=== PATIENT | female | born 1955 | race Caucasian/White ===

== ENCOUNTER 2020-05-14 06:35 | Emergency (ER) | payer SELFPAY ==
[2020-05-14 08:51] LABS: ABSOLUTE LYMPHOCYTES (AUTO) 1.7 10^3/uL (0.5-4.7); ABSOLUTE MONOCYTES (AUTO) 0.4 10^3/uL (0.1-1.4); ABSOLUTE NEUT (AUTO) 8.5 10^3/uL (1.7-8.2); BASOPHILS % (AUTO) 0.3 % (0-2); EOSINOPHILS % (AUTO) 0.1 % (0-6); HEMATOCRIT 42.4 % (36.0-47.0); HEMOGLOBIN 14.3 g/dL (12.0-15.5); LYMPHOCYTES % (AUTO) 15.6 % (13-45); MEAN CORPUSCULAR HEMOGLOBIN 30.2 pg (27.0-33.4); MEAN CORPUSCULAR HGB CONC 33.7 g/dL (32.0-36.0); MEAN CORPUSCULAR VOLUME 90 fl (80-97); MONOCYTES % (AUTO) 4.2 % (3-13); PLATELET COUNT 228 10^3/uL (150-450); RED BLOOD COUNT 4.74 10^6/uL (3.72-5.28); RED CELL DISTRIBUTION WIDTH 13.9 % (11.5-14.0); SEGMENTED NEUTROPHILS % (AUTO) 79.8 % (42-78); TOTAL CELLS COUNTED % (AUTO) 100 %; WHITE BLOOD COUNT 10.7 10^3/uL (4.0-10.5)
[2020-05-14] MEDS ORDERED: NORMAL SALINE 1000 ML 1,000 ML IV ONE (09:10)
[2020-05-14] MEDS ORDERED: MAG HYDROX/AL HYDROX/SIMETH SUSP 30 ML UDCUP PO ONE (09:11)
[2020-05-14] MEDS ORDERED: LIDOCAINE 2% VISCOUS SOLN 15 ML UDCUP PO ONE (09:11)
[2020-05-14] MEDS ORDERED: FAMOTIDINE INJ/PF 20 MG/2 ML SDV IV ONE (09:11)
[2020-05-14 09:15] LABS: ALBUMIN 4.7 g/dL (3.5-5.0); ALKALINE PHOSPHATASE 121 U/L (38-126); ANION GAP 5 (5-19); ASPARTATE AMINO TRANSFERASE 23 U/L (14-36); BILIRUBIN,TOTAL 0.4 mg/dL (0.2-1.3); BLOOD UREA NITROGEN 13 mg/dL (7-20); CALCIUM 9.8 mg/dL (8.4-10.2); CARBON DIOXIDE 28 mmol/L (22-30); CHLORIDE 106 mmol/L (98-107); GLUCOSE 119 mg/dL (75-110); POTASSIUM 4.4 mmol/L (3.6-5.0); TOTAL PROTEIN 7.5 g/dL (6.3-8.2)
[2020-05-14 09:20] LABS: APPEARANCE,URINE SLIGHTLY-CLOUDY; BILIRUBIN,URINE NEGATIVE (NEGATIVE); COLOR,URINE YELLOW; GLUCOSE, URINE NEGATIVE (NEGATIVE); KETONES,URINE 20 mg/dL (NEGATIVE); LEUKOCYTE ESTERASE,URINE SMALL (NEGATIVE); NITRITE,URINE NEGATIVE (NEGATIVE); PROTEIN,URINE 30 mg/dL (NEGATIVE); URINE SPECIFIC GRAVITY 1.021; UROBILINOGEN,URINE NEGATIVE mg/dL (<2.0)
--- NOTE | 2020-05-14 09:28 | ER Document Report ---
Entered by MAKAYLA ALVARADO SCRIBE 05/14/20 0922 Acting as scribe for:BUZZ MURILLO MD ED GI/ - General Chief Complaint: vomitng Stated Complaint: NAUSEA,VOMITING Time Seen by Provider: 05/14/20 08:54 Mode of Arrival: Ambulatory Information source: Patient Notes: This 65-year-old female patient presents to the emergency department today with complaints of "indigestion for a week" with complaints of vomiting as well. Patient states last night she vomited about a dozen times in a few hours prior to arrival here. Patient describes her pain as a burning from her esophagus down to her lower abdomen. - Related Data Allergies/Adverse Reactions: Penicillins Allergy (Verified 05/14/20 08:04) Past Medical History - General Information source: Patient - Social History Smoking Status: Current Every Day Smoker Cigarette use (# per day): Yes - 1/2 ppd Frequency of alcohol use: None Drug Abuse: None Lives with: Family Family History: Reviewed & Not Pertinent Patient has homicidal ideation: No GI Medical History: Reports: Hx Gastroesophageal Reflux Disease Past Surgical History: Reports: Hx Orthopedic Surgery - right elbow ulnar nerve release, Hx Tonsillectomy, Other - Bunionectomy Review of Systems - Review of Systems Constitutional: No symptoms reported EENT: No symptoms reported Cardiovascular: No symptoms reported Respiratory: No symptoms reported Gastrointestinal: See HPI, Vomiting, Other - indigestion Genitourinary: No symptoms reported Female Genitourinary: No symptoms reported Musculoskeletal: No symptoms reported Skin: No symptoms reported Hematologic/Lymphatic: No symptoms reported Neurological/Psychological: No symptoms reported -: Yes All other systems reviewed and negative Physical Exam - Vital signs Vitals: Temp 98.0 F 05/14/20 08:01 - Notes Notes: Physical Exam: General: Alert, appears well. HEENT: Normocephalic. Atraumatic. PERRL. Extraocular movements intact. Oropharynx clear. Neck: Supple. Non-tender. Respiratory: No respiratory distress. Clear and equal breath sounds bilaterally. Cardiovascular: Regular rate and rhythm. Abdominal: Obese. Epigastric tenderness with palpation. No distension. Normal Bowel Sounds. Back: No gross abnormalities. Extremities: Moves all four extremities. Upper extremities: Normal inspection. Normal ROM. Lower extremities: Normal inspection. No edema. Normal ROM. Neurological: Normal cognition. AAOx4. Normal speech. Psychological: Normal affect. Normal Mood. Skin: Warm. Dry. Normal color. Course - Re-evaluation Re-evalutation: 05/14/20 11:13 The patient's gallbladder shows stones with a mildly thickened wall at 4 mm, and a common bile duct at the upper limits of normal at 7 mm. There is no pericholecystic fluid seen. There is no leukocytosis, LFTs and lipase are normal. The patient will be advised to contact [facility] and schedule an appointment this week for further evaluation of her gallbladder. - Vital Signs Vital signs: Temp Pulse Resp BP Pulse Ox 98.0 F 72 16 131/80 H 99 05/14/20 08:04 05/14/20 08:04 05/14/20 08:04 05/14/20 08:04 05/14/20 08:04 - Laboratory Result Diagrams: 05/14/20 08:25 05/14/20 08:25 Laboratory results interpreted by me: 05/14/20 05/14/20 05/14/20 08:25 08:25 08:45 WBC 10.7 H Absolute Neuts (auto) 8.5 H Seg Neutrophils % 79.8 H Glucose 119 H Urine Protein 30 H Urine Ketones 20 H Urine Blood SMALL H Ur Leukocyte Esterase SMALL H - Diagnostic Test Radiology reviewed: Image reviewed, Reports reviewed - Gallbladder ultrasound shows stones in the gallbladder, common bile duct upper limits of normal at 7 mm, gallbladder wall slightly thickened at 4 mm. No pericholecystic fluid. Discharge - Discharge Clinical Impression: GERD (gastroesophageal reflux disease) Qualifiers: Esophagitis presence: esophagitis presence not specified Qualified Code(s): K21.9 - Gastro-esophageal reflux disease without esophagitis Cholelithiasis Qualifiers: Cholelithiasis location: gallbladder Cholecystitis presence: without cholecystitis Biliary obstruction: without biliary obstruction Qualified Code(s): K80.20 - Calculus of gallbladder without cholecystitis without obstruction Condition: Stable Disposition: HOME, SELF-CARE Additional Instructions: Gallbladder Disease: Your evaluation shows evidence of gallbladder disease. The gallbladder is a pouch under the liver which stores bile. Stones, infection, or irritation of the gallbladder cause attacks of pain. Certain foods -- fats in particular -- may provoke attacks. The usual treatment for gallbladder disease is surgical removal of the gallbladder -- called a cholecystectomy. You will be referred to a physician qualified to advise you on the best treatment for your problem. Hospitalization is not necessary. Take clear liquids only until you are painfree. After that, you should stay on a low-fat diet, with frequent SMALL meals. Call the doctor or return at once if you develop severe pain, repeated vomiting, fever, or jaundice (a yellow color in the skin and whites of the eyes). Reflux Disease (GERD): Gastro-Esophageal Reflux Disease (GERD) is caused by stomach acid refluxing back up into the esophagus. The valve at the end of the esophagus may be weak. This is common in persons with a hiatal hernia. GERD symptoms can include indigestion, chest pain, heartburn, or food "sticking." Certain foods, alcohol, and aspirin can make GERD worse. Treatment depends on the severity. Usually, antacids or acid-suppressing medicines are used. When the esophagus is acutely inflamed, the physician will often prescribe membrane-protective drugs such as Carafate. Some patients benefit from medication such as Reglan that tightens the valve at the top of the stomach. Avoid those foods that bring on your symptoms. For many people, these foods are coffee, chocolate, onions, garlic, and carbonated drinks. Don't use alcohol, aspirin, caffeine, or tobacco. Don't eat late at night -- within 4 hours of bedtime. Don't over-eat. If necessary, elevate the head of your bed about 4 inches so that stomach acid will not roll up into your esophagus. Call the doctor if you develop severe chest pain, inability to swallow fluids, fever, or worsening symptoms. The symptoms you are having are consistent with gastroesophageal reflux. The symptoms are probably being made worse by gallstones. At this time do not appear to have acute cholecystitis, however your gallbladder wall is a little bit thickened. You should take a proton pump inhibitor medication such as Prilosec OTC once daily. Eat a bland low-fat diet. Take medication as dispensed for nausea if needed today. Call [facility] today to schedule an appointment this week to be evaluated for your gallbladder disease. RETURN TO THE EMERGENCY ROOM IF ANY NEW OR WORSENING SYMPTOMS. I personally performed the services described in the documentation, reviewed and edited the documentation which was dictated to the scribe in my presence, and it accurately records my words and actions.
--- NOTE | 2020-05-14 10:37 | RADIOLOGY REPORT (SQ) ---
EXAM DESCRIPTION: U/S ABDOMEN LIMITED W/O DOP IMAGES COMPLETED DATE/TIME: 05/14/2020 10:22 am REASON FOR STUDY: Reflux, vomiting COMPARISON: None. TECHNIQUE: Dynamic and static grayscale images acquired of the abdomen and recorded on PACS. Additio nal selected color Doppler and spectral images recorded. LIMITATIONS: None. FINDINGS: PANCREAS: Limited visualization due to overlying bowel gas. LIVER: Fatty infiltration. No focal masses. LIVER VASCULATURE: Normal directional flow of the main portal vein and hepatic veins. GALLBLADDER: Gallstones. Gallbladder wall is slightly thickened measured 4 mm. No pericholecystic e meg. ULTRASOUND-DETECTED REYNA'S SIGN: Negative. INTRAHEPATIC DUCTS AND COMMON DUCT: The common bile duct is at the upper limits of normal measured at 7.0 mm. AORTA: No aneurysm. RIGHT KIDNEY: Normal size. Normal echogenicity. No solid or suspicious masses. No hydronephrosis. No calcifications. PERITONEAL AND RIGHT PLEURAL SPACE: No ascites or effusions. OTHER: No other significant findings. IMPRESSION: Fatty infiltrated liver. Gallstones. Gallbladder wall is slightly thickened measured 4 mm. No pericholecystic edema. Negative sonographic Reyna's sign. The common bile duct is at the upper limits of normal in size. TECHNICAL DOCUMENTATION: JOB ID: [id number] 2010 [employer]- All Rights Reserved Reading location - IP/workstation name: [email or web address]
[2020-05-14] MEDS ORDERED: ONDANSETRON ODT 4 MG TAB (6 TAB/ER DISP) PO PRN (11:14)
[2020-05-14 11:35] VITALS: BP 139/68
== END 2020-05-14 11:35 | disposition home or self-care (01) ==
LOC: ER 06:35
DX: K21.9 Gastro-esophageal reflux disease without esophagitis (principal); K80.20 Calculus of gallbladder without cholecystitis without obstruction; R11.2 Nausea with vomiting, unspecified; K76.0 Fatty (change of) liver, not elsewhere classified; F17.210 Nicotine dependence, cigarettes, uncomplicated; Z88.0 Allergy status to penicillin
CPT/HCPCS: 99284; 96361; 96374; 36415; 83690; 85025; 80053; 81001; 76705; J3490; J7030; S0028

== ENCOUNTER 2020-10-25 08:23 | Observation (INO) | payer SELFPAY ==
[2020-10-25] MEDS ORDERED: ONDANSETRON HCL INJ/PF 4 MG/2 ML SDV IV ONE (08:38)
[2020-10-25] MEDS ORDERED: NORMAL SALINE 1000 ML 1,000 ML IV ONE (08:38)
[2020-10-25 08:55] LABS: ABSOLUTE BASOPHILS # (AUTO) 0.1 10^3/uL (0.0-0.2); ABSOLUTE LYMPHOCYTES (AUTO) 1.8 10^3/uL (0.5-4.7); ABSOLUTE MONOCYTES (AUTO) 0.4 10^3/uL (0.1-1.4); ABSOLUTE NEUT (AUTO) 11.5 10^3/uL (1.7-8.2); BASOPHILS % (AUTO) 0.4 % (0-2); EOSINOPHILS % (AUTO) 0.1 % (0-6); HEMOGLOBIN 14.1 g/dL (12.0-15.5); LYMPHOCYTES % (AUTO) 13.2 % (13-45); MEAN CORPUSCULAR HEMOGLOBIN 30.1 pg (27.0-33.4); MEAN CORPUSCULAR HGB CONC 33.5 g/dL (32.0-36.0); MEAN CORPUSCULAR VOLUME 90 fl (80-97); PLATELET COUNT 247 10^3/uL (150-450); RED BLOOD COUNT 4.67 10^6/uL (3.72-5.28); RED CELL DISTRIBUTION WIDTH 13.8 % (11.5-14.0); SEGMENTED NEUTROPHILS % (AUTO) 83.3 % (42-78); TOTAL CELLS COUNTED % (AUTO) 100 %; WHITE BLOOD COUNT 13.8 10^3/uL (4.0-10.5)
[2020-10-25] MEDS ORDERED: MORPHINE SULFATE 10 MG/ML INJ IV ONE (09:01)
--- NOTE | 2020-10-25 09:05 | ER Document Report ---
ED GI/ - General Chief Complaint: Nausea/Vomiting Stated Complaint: ABDOMINAL PAIN Time Seen by Provider: 10/25/20 08:47 - HPI Notes: Patient is a 65-year-old female with a history of gallstones who presents with RUQ abdominal pain that began early this morning around 3 AM. Patient reports persistent nausea vomiting. She states this pain is similar to when she had a gallstone attack back in April. She was advised to follow up with the [facility] outpatient, however, she has not followed up. She denies diarrhe a, dysuria, shortness of breath, chest pain, cough, and fever. She has not taken any medication for symptom relief. Patient states the last time she ate was at 18:30 last night. - Related Data Allergies/Adverse Reactions: codeine Allergy (Verified 10/25/20 08:53) Penicillins Allergy (Verified 10/25/20 08:53) rash Past Medical History - General Information source: Patient - Social History Smoking Status: Current Every Day Smoker Chew tobacco use (# tins/day): No Frequency of alcohol use: Occasional Drug Abuse: None Family History: Reviewed & Not Pertinent GI Medical History: Reports: Hx Gastroesophageal Reflux Disease Past Surgical History: Reports: Hx Orthopedic Surgery - right elbow ulnar nerve release, Hx Tonsillectomy, Other - Bunionectomy Review of Systems - Review of Systems Constitutional: No symptoms reported EENT: No symptoms reported Cardiovascular: No symptoms reported Respiratory: No symptoms reported Gastrointestinal: See HPI Genitourinary: No symptoms reported Female Genitourinary: No symptoms reported Musculoskeletal: No symptoms reported Skin: No symptoms reported Hematologic/Lymphatic: No symptoms reported Neurological/Psychological: No symptoms reported Physical Exam - Vital signs Vitals: Temp Pulse Resp BP Pulse Ox 97.9 F 66 20 175/78 H 99 10/25/20 08:25 12 08:25 12 08:25 10/25/20 08:25 10/25/20 08:25 - Notes Notes: PHYSICAL EXAMINATION: VITALS: Vitals reviewed. Hypertensive. GENERAL: Well-appearing, well-nourished and in no acute distress. HEAD: Atraumatic, normocephalic. EYES: Pupils equal, round, and reactive to light, extraocular movements intact, sclera anicteric, conjunctiva are normal. ENT: Nares patent. Moist mucous membranes. Oropharynx clear without exudates. NECK: Normal range of motion, supple without lymphadenopathy. LUNGS: Breath sounds clear to auscultation bilaterally and equal. No wheezes, rales, or rhonchi. HEART: Regular, rate, and rhythm without murmurs. ABDOMEN: Soft abdomen with normoactive bowel sounds. RUQ tenderness with negative Reyna sign. No guarding, no rebound. No masses appreciated. EXTREMITIES: Normal range of motion, no pitting or edema. No cyanosis. NEUROLOGICAL: No focal neurological deficits. Moves all extremities spontaneously and on command. PSYCH: Normal mood, normal affect. SKIN: Warm, Dry, normal turgor, no rashes or lesions noted. Course - Re-evaluation Re-evalutation: Patient is a 65-year-old female with history of gallstones who presents with RUQ abdominal pain and vomiting that began early this morning. Patient is hyperten sive with a BP of 175/78. Vital signs are otherwise within normal limits. On exam, RUQ tenderness with normal bowel sounds. WBC is elevated at 13.8. Alk Phos is elevated at 161. Gallbladder US shows cholelithiasis. While there are no sonographic findings of acute cholecystitis, such a process cannot be ruled out given a positive sonographic Reyna sign. Adenomyomatosis. Common bile duct measuring at the upper limits of normal, unchanged. Hepatic steatosis. 10/25/20 11:10 I spoke with supervising physician, Dr. Bernardo, who evaluated the patient back in April. He recommends calling the surgeon on-call due to her leukocytosis, sonographic reyna's sign and lack of follow up as she is un insured. 10/25/20 11:[address] Feng, surgeon on-call. He agrees to evaluate the patient for likely cholecystectomy. He is requesting the patient be NPO and a rapid COVID testing. - Vital Signs Vital signs: Temp Pulse Resp BP Pulse Ox 97.9 F 70 18 160/77 H 98 10/25/20 14:05 10/25/20 11:57 10/25/20 14:05 10/25/20 14:05 10/25/20 14:05 - Laboratory Results Result Diagrams: 10/25/20 08:42 10/25/20 08:42 Laboratory Results Interpreted: 10/25/20 10/25/20 10/25/20 08:42 08:42 09:39 WBC 13.8 H Absolute Neuts (auto) 11.5 H Seg Neutrophils % 83.3 H Glucose 147 H Alkaline Phosphatase 161 H Urine Ketones TRACE H Urine Blood SMALL H Critical Laboratory Results Reviewed: No Critical Results - Radiology Results Radiology Results Interpreted: Abdomen Ultrasound 10/25/20 09:02 IMPRESSION: Cholelithiasis. While there are no sonographic findings of acute cholecystitis, such a process cannot be ruled out given a positive sonographic Reyna sign. Adenomyomatosis. Common bile duct measuring at the upper limits of normal, unchanged. Hepatic steatosis. Critical Radiology Results Reviewed: No Critical Results Discharge - Discharge Clinical Impression: Cholelithiasis Qualifiers: Cholelithiasis location: gallbladder Cholecystitis presence: without cholecystitis Biliary obstruction: without biliary obstruction Qualified Code(s): K80.20 - Calculus of gallbladder without cholecystitis without obstruction Abdominal pain Qualifiers: Abdominal location: right upper quadrant Qualified Code(s): R10.11 - Right upper quadrant pain Nausea & vomiting Qualifiers: Vomiting type: unspecified Vomiting Intractability: non-intractable Qualified Code(s): R11.2 - Nausea with vomiting, unspecified Leukocytosis Qualifiers: Leukocytosis type: unspecified Qualified Code(s): D72.829 - Elevated white blood cell count, unspecified Condition: Stable Disposition: ADMITTED INPATIENT Admitting Provider: Surgicalist Unit Admitted: OR
[2020-10-25 09:18] LABS: ALBUMIN 4.8 g/dL (3.5-5.0); ALKALINE PHOSPHATASE 161 U/L (38-126); ANION GAP 10 (5-19); ASPARTATE AMINO TRANSFERASE 23 U/L (14-36); BILIRUBIN,DIRECT 0.1 mg/dL (0.0-0.4); BILIRUBIN,TOTAL 0.4 mg/dL (0.2-1.3); BLOOD UREA NITROGEN 12 mg/dL (7-20); CALCIUM 9.8 mg/dL (8.4-10.2); CARBON DIOXIDE 26 mmol/L (22-30); CHLORIDE 105 mmol/L (98-107); GLUCOSE 147 mg/dL (75-110); POTASSIUM 3.9 mmol/L (3.6-5.0)
[2020-10-25 09:55] LABS: APPEARANCE,URINE CLEAR; BILIRUBIN,URINE NEGATIVE (NEGATIVE); COLOR,URINE STRAW; GLUCOSE, URINE NEGATIVE (NEGATIVE); KETONES,URINE TRACE mg/dL (NEGATIVE); LEUKOCYTE ESTERASE,URINE NEGATIVE (NEGATIVE); NITRITE,URINE NEGATIVE (NEGATIVE); PROTEIN,URINE NEGATIVE (NEGATIVE); URINE SPECIFIC GRAVITY 1.015; UROBILINOGEN,URINE NEGATIVE mg/dL (<2.0)
--- NOTE | 2020-10-25 09:59 | RADIOLOGY REPORT (SQ) ---
EXAM DESCRIPTION: U/S ABDOMEN LIMITED W/O DOP IMAGES COMPLETED DATE/TIME: 10/25/2020 9:42 am REASON FOR STUDY: RUQ pain COMPARISON: Right upper quadrant ultrasound 05/14/2020. TECHNIQUE: Dynamic and static grayscale images acquired of the abdomen and recorded on PACS. Leatha puckett selected color Doppler and spectral images recorded. LIMITATIONS: None. FINDINGS: PANCREAS: No masses. Visualized pancreatic duct normal caliber. LIVER: Diffuse increased echogenicity and coarsened echotexture. LIVER VASCULATURE: Normal directional flow of the main portal vein and hepatic veins. GALLBLADDER: Gallstones. No mural thickening or pericholecystic fluid. Echogenic wall with ring tori n artifact consistent with adenomyomatosis. Positive sonographic Reyna's. ULTRASOUND-DETECTED REYNA'S SIGN: Negative. INTRAHEPATIC DUCTS AND COMMON DUCT: Common bile duct measuring at the upper limits of normal at 7 mm, unchanged. INFERIOR VENA CAVA: Normal flow. AORTA: No aneurysm. RIGHT KIDNEY: Normal size. Normal echogenicity. No solid or suspicious masses. No hydronephrosis. No calcifications. PERITONEAL AND RIGHT PLEURAL SPACE: No ascites or effusions. OTHER: No other significant findings. IMPRESSION: Cholelithiasis. While there are no sonographic findings of acute cholecystitis, such a process cannot be ruled out given a positive sonographic Reyna sign. Adenomyomatosis. Common bile duct measuring at the upper limits of normal, unchanged. Hepatic steatosis. TECHNICAL DOCUMENTATION: JOB ID: [id number] 2010 [employer]- All Rights Reserved Reading location - IP/workstation name: [email or web address]
[2020-10-25] MEDS ORDERED: DEXAMETHASONE SOD PHOSPHATE INJ 4 MG/1 ML VIAL ONE (10:55)
[2020-10-25] MEDS ORDERED: ROCURONIUM BROMIDE INJ 50 MG/5 ML VIAL IV ONE (10:55)
[2020-10-25] MEDS ORDERED: KETOROLAC TROMETHAMINE 60 MG/2 ML SDV ONE (10:55)
[2020-10-25] MEDS ORDERED: LIDOCAINE 2% INJ-PF (20 MG/ML) 2 ML AMPUL ONE (10:55)
[2020-10-25] MEDS ORDERED: METOCLOPRAMIDE HCL INJ/PF 10 MG/2 ML SDV ONE (10:55)
[2020-10-25] MEDS ORDERED: NEOSTIGMINE METHYLSULFATE 10 MG/10 ML VIAL ONE (10:55)
[2020-10-25] MEDS ORDERED: ONDANSETRON HCL INJ/PF 4 MG/2 ML SDV ONE ×2 (10:55→14:15)
[2020-10-25] MEDS ORDERED: GLYCOPYRROLATE 1 MG/5 ML VIAL ONE (10:55)
[2020-10-25] MEDS ORDERED: SCOPOLAMINE HYDROBROMIDE 1.5 MG PATCH.TD72 ONE (14:15)
--- NOTE | 2020-10-25 14:33 | PDOC H&P ---
History of Present Illness Admission Date/PCP: 10/25/20 11:45 Patient complains of: Abdominal pains History of Present Illness: MARTHA IRIZARRY is a 65 year old female who complained of severe right upper quadrant pains at 3 AM this morning which is been progressive associated nausea and went to ED today and ultrasound showed gallstones with evidence of chol ecystitis. She had a previous episode in April 2020 which spontaneously resolved. Past Medical History GI Medical History: Reports: Gastroesophageal Reflux Disease Past Surgical History Past Surgical History: Reports: Orthopedic Surgery - right elbow ulnar nerve release, Tonsillectomy, Other - Bunionectomy Social History Smoking Status: Current Every Day Smoker Electronic Cigarette use?: No Family History Family History: Reviewed & Not Pertinent Parental Family History Reviewed: Yes Children Family History Reviewed: No Sibling(s) Family History Reviewed.: No Medication/Allergy Home Medications: No Home Medications 10/25/20 Allergies/Adverse Reactions: codeine Allergy (Verified 10/25/20 08:53) Penicillins Allergy (Verified 10/25/20 08:53) rash Review of Systems Constitutional: PRESENT: other - Denies fever no chills Gastrointestinal: PRESENT: abdominal pain, nausea Physical Exam Vital Signs: Temp Pulse Resp BP Pulse Ox 97.9 F 70 18 160/77 H 98 10/25/20 11:57 10/25/20 11:57 10/25/20 11:57 10/25/20 11:57 10/25/20 11:57 Intake & Output 10/24/20 10/25/20 10/26/20 06:59 06:59 06:59 Intake Total 1000 Balance 1000 Weight 78.7 kg General appearance: PRESENT: mild distress Head exam: PRESENT: atraumatic Eye exam: PRESENT: conjunctiva pink Mouth exam: PRESENT: moist Neck exam: PRESENT: full ROM Respiratory exam: PRESENT: clear to auscultation nova Cardiovascular exam: PRESENT: RRR Pulses: PRESENT: normal radial pulses Vascular exam: PRESENT: normal capillary refill GI/Abdominal exam: PRESENT: tenderness - Right upper quadrant Rectal exam: PRESENT: deferred Results Laboratory Results: 10/25/20 08:42 10/25/20 08:42 10/25/20 10/25/20 10/25/20 08:42 08:42 08:42 WBC 13.8 H RBC 4.67 Hgb 14.1 Hct 42.0 MCV 90 MCH 30.1 MCHC 33.5 RDW 13.8 Plt Count 247 Seg Neutrophils % 83.3 H Sodium 140.6 Potassium 3.9 Chloride 105 Carbon Dioxide 26 Anion Gap 10 BUN 12 Creatinine 0.66 Est GFR ( Amer) > 60 Glucose 147 H Calcium 9.8 Total Bilirubin 0.4 AST 23 Alkaline Phosphatase 161 H Total Protein 8.0 Albumin 4.8 Lipase 60.1 Urine Color Urine Appearance Urine pH Ur Specific [place] Urine Protein Urine Glucose (UA) Urine Ketones Urine Blood Urine Nitrite Ur Leukocyte Esterase Urine WBC (Auto) Urine RBC (Auto) 10/25/20 09:39 WBC RBC Hgb Hct MCV MCH MCHC RDW Plt Count Seg Neutrophils % Sodium Potassium Chloride Carbon Dioxide Anion Gap BUN Creatinine Est GFR ( Amer) Glucose Calcium Total Bilirubin AST Alkaline Phosphatase Total Protein Albumin Lipase Urine Color STRAW Urine Appearance CLEAR Urine pH 7.0 Ur Specific [place] 1.015 Urine Protein NEGATIVE Urine Glucose (UA) NEGATIVE Urine Ketones TRACE H Urine Blood SMALL H Urine Nitrite NEGATIVE Ur Leukocyte Esterase NEGATIVE Urine WBC (Auto) 0 Urine RBC (Auto) 2 Impressions: Abdomen Ultrasound 10/25/20 09:02 IMPRESSION: Cholelithiasis. While there are no sonographic findings of acute cholecystitis, such a process cannot be ruled out given a positive sonographic Reyna sign. Adenomyomatosis. Common bile duct measuring at the upper limits of normal, unchanged. Hepatic steatosis. Assessment & Plan - Diagnosis (1) Acute cholecystitis Is this a current diagnosis for this admission?: Yes (2) Cholelithiasis Qualifiers: Cholelithiasis location: gallbladder Cholecystitis presence: without cholecystitis Biliary obstruction: without biliary obstruction Qualified Code(s): K80.20 - Calculus of gallbladder without cholecystitis without obstruction Is this a current diagnosis for this admission?: Yes (3) Leukocytosis Qualifiers: Leukocytosis type: unspecified Qualified Code(s): D72.829 - Elevated white blood cell count, unspecified Is this a current diagnosis for this admission?: Yes (4) Nausea & vomiting Qualifiers: Vomiting type: unspecified Vomiting Intractability: non-intractable Q ualified Code(s): R11.2 - Nausea with vomiting, unspecified Is this a current diagnosis for this admission?: Yes - Time Time Spent: 30 to 50 Minutes Anticipated Discharge Disposition: Home, Self Care Anticipated Discharge Timeframe: within 48 hours - Inpatient Certification Medical Necessity: Need for IV Antibiotics, Need for Surgery - Plan Summary Plan Summary: 65-year-old female with a right upper quadrant pains around 3 AM this morning associated with nausea and vomiting. Ultrasound showed gallstones with evidence of cholecystitis. She had a previous episode around 6 months ago which spontaneously subsided. Denies any fever no chills. She is tender in the right upper quadrant. Plans: Start IV antibiotics For lap natanael
[2020-10-25] MEDS ORDERED: MIDAZOLAM 2 MG/2 ML INJ ONE (14:44)
[2020-10-25] MEDS ORDERED: BUPIVACAINE HCL 0.25% /EPINEPHRINE INJ/PF 30 ML SDV ONE (14:44)
[2020-10-25] MEDS ORDERED: HYDROMORPHONE HCL INJ/PF 2 MG/ML AMPULE ONE (14:44)
[2020-10-25] MEDS ORDERED: PROPOFOL INJ 200 MG/20 ML VIAL IV ONE (14:45)
[2020-10-25] MEDS ORDERED: CEFAZOLIN INJ 1 GM VIAL ONE (14:54)
[2020-10-25] MEDS ORDERED: EPHEDRINE SULFATE INJ 50 MG/1 ML AMPULE ONE (15:28)
[2020-10-25] MEDS ORDERED: ONDANSETRON HCL INJ/PF 4 MG/2 ML SDV IV PRN (15:34)
[2020-10-25] MEDS ORDERED: FENTANYL CITRATE INJ/PF 100 MCG/2 ML AMPUL IV PRN ×3 (15:34)
[2020-10-25] MEDS ORDERED: DIPHENHYDRAMINE HCL 50 MG/ML VIAL IV PRN (15:34)
[2020-10-25] MEDS ORDERED: MEPERIDINE HCL/PF INJ 25 MG/1 ML DISP.SYRIN IV PRN (15:34)
[2020-10-25] MEDS ORDERED: PROMETHAZINE HCL INJ 25 MG/1 ML VIAL IV PRN ×2 (15:34)
--- NOTE | 2020-10-25 16:24 | Operative Report ---
Operative Report DATE OF SURGERY: 10/25/20 PREOPERATIVE DIAGNOSIS: Cholelithiasis. Acute cholecystitis POSTOPERATIVE DIAGNOSIS: Acute cholecystitis with hydrops of the gallbladder. Cholelithiasis OPERATION: Laparoscopic cholecystectomy SURGEON: ADRIAN IRCK ANESTHESIA: GA TISSUE REMOVED OR ALTERED: Gallbladder COMPLICATIONS: None ESTIMATED BLOOD LOSS: 10 cc QUANTITATIVE BLOOD LOSS: 10 INTRAOPERATIVE FINDINGS: Gallbladder was markedly distended. There appears to be a stone close to the cystic duct. There is mild edema around the gallbladder. PROCEDURE: After adequate general anesthesia patient was placed in supine position and the abdomen prepped and draped in the usual sterile fashion appropriate timeout was then called. Infraumbilical incision was made and the fascia identified and grabbed with Day clamps and divided between the Day clamps. 2 sutures of 0 Vicryl were placed around the clamp on the fascia stay sutures. Clamps were released. The fascial opening was then digitally probed down to the peritoneal area and evidence of adhesions noted there. A Irby trocar was then inserted through the fascia of the abdominal cavity and CO2 insufflated. Patient was placed in reverse in Trendelenburg position and 12 mm trocar inserted subxiphoid towards the right side. 2 other trochars were placed on the right upper quadrant 2 5mm. The gallbladder was then identified and noted to be markedly distended though appears to be relatively small. It was then decompressed with the long needle and aspirated whitish fluid indicating hydrops of the gallbladder. Gallbladder was then able to be grasped at the fundus and brought over the liver. Infundibulum also was subsequently grasped. Blunt dissection around the area of the cystic duct and the cystic duct and cystic artery were then dissected and after angle of safety noted the cystic artery was subsequently clipped with hemoclips and divided between the hemoclips. Cystic duct was then clipped with hemoclips placed 3 clips proximally and 1 clip towards the gallbladder and di vided between the distal clips. The gallbladder was then dissected taken off the liver bed with the use of harmonic donny. Gallbladder placed in Endobag and pulled out through the umbilical port. Was at least 1 large stone palpated in the gallbladder likely obstructing the cystic duct causing the hydrops. Cars were placed back in the liver bed inspected and no evidence of active bleeding noted this was gently irrigated. All the trochars were then removed and CO2 allowed to come out of the trocar sites. The fascial defect in the infraumbilical area was then closed with a [id number] suture using 0 Vicryl and the 2 stay sutures tied together for better closure. The subcu was then irrigated and the skin incision at the infra umbilical area was then closed with running subcuticular 4-0 Vicryl undyed. 3 other skin incisions were then closed with running 4-0 Vicryl undyed. Steri-Strips placed over the operative sites. Needle instrument sponge count were all correct. Patient then brought to recovery room in satisfactory condition extubated.
[2020-10-25] MEDS ORDERED: DEXTROSE 5%-LACTATED RINGERS 1,000 ML IV PRN (16:25)
[2020-10-25] MEDS ORDERED: OXYCODONE-ACETAMINOPHEN 5-325 MG TABLET PO PRN (16:29)
[2020-10-25] MEDS ORDERED: ACETAMINOPHEN 1,000 MG/100 ML RTUPB IV ONE (16:41)
[2020-10-25] MEDS: KETOROLAC TROMETHAMINE INJ/PF 30 MG/1 ML SDV IV SCH (18:23)
[2020-10-25] MEDS: CEFAZOLIN 1 GM/D5W RTU 1 GM/50 ML RTUPB IV SCH (18:23)
[2020-10-26] MEDS: KETOROLAC TROMETHAMINE INJ/PF 30 MG/1 ML SDV IV SCH ×3 (00:50→11:43)
[2020-10-26] MEDS: CEFAZOLIN 1 GM/D5W RTU 1 GM/50 ML RTUPB IV SCH ×3 (00:55→11:44)
[2020-10-26] MEDS ORDERED: INFLUENZA QUAD (6MOS+) 2020-21 VAC 0.5 ML SYR IM ONE (08:00)
[2020-10-26 08:13] LABS: ABSOLUTE LYMPHOCYTES (AUTO) 2.2 10^3/uL (0.5-4.7); ABSOLUTE MONOCYTES (AUTO) 0.7 10^3/uL (0.1-1.4); ABSOLUTE NEUT (AUTO) 7.6 10^3/uL (1.7-8.2); BASOPHILS % (AUTO) 0.4 % (0-2); HEMATOCRIT 31.9 % (36.0-47.0); LYMPHOCYTES % (AUTO) 21.2 % (13-45); MEAN CORPUSCULAR HEMOGLOBIN 30.6 pg (27.0-33.4); MEAN CORPUSCULAR HGB CONC 34.5 g/dL (32.0-36.0); MEAN CORPUSCULAR VOLUME 89 fl (80-97); MONOCYTES % (AUTO) 6.3 % (3-13); PLATELET COUNT 167 10^3/uL (150-450); RED CELL DISTRIBUTION WIDTH 13.8 % (11.5-14.0); SEGMENTED NEUTROPHILS % (AUTO) 72.1 % (42-78); TOTAL CELLS COUNTED % (AUTO) 100 %; WHITE BLOOD COUNT 10.5 10^3/uL (4.0-10.5)
[2020-10-26 08:35] LABS: ALBUMIN 3.4 g/dL (3.5-5.0); ALKALINE PHOSPHATASE 102 U/L (38-126); ANION GAP 7 (5-19); ASPARTATE AMINO TRANSFERASE 27 U/L (14-36); BILIRUBIN,DIRECT 0.1 mg/dL (0.0-0.4); BILIRUBIN,TOTAL 0.3 mg/dL (0.2-1.3); BLOOD UREA NITROGEN 9 mg/dL (7-20); CALCIUM 9.1 mg/dL (8.4-10.2); CARBON DIOXIDE 24 mmol/L (22-30); CHLORIDE 108 mmol/L (98-107); GLUCOSE 108 mg/dL (75-110); TOTAL PROTEIN 5.4 g/dL (6.3-8.2)
--- NOTE | 2020-10-26 10:34 | PDOC DISCHARGE SUMMARY ---
General - Admit/Disc Date/PCP Admission Date/Primary Care Provider: 10/25/20 11:45 Discharge Date: 10/26/20 - Discharge Diagnosis Final Diagnosis: Cholelithiasis Acute cholecystitis - Assessment Summary: 5-year-old female underwent laparoscopic cholecystectomy for acute cholecystitis and cholelithiasis on 10/25/2020. Postoperatively patient did very well and discharged on 10/26/2020. Patient to be followed in the surgical clinic in 2 weeks - Additional Information Resuscitation Status: Full Code Home Medications: No Home Medications 10/25/20 History of Present Illiness History of Present Illness: 65-year-old female with abdominal pains and ultrasound showed gallstones. White count slightly elevated and tender in the right upper quadrant. Patient then admitted for laparoscopic cholecystectomy which was done on 10/25/2020. Hospital Course Hospital Course: Patient admitted on 10/25/2020 for acute cholecystitis and cholelithiasis and underwent laparoscopic cholecystectomy on the same day. Postoperatively patient did very well and discharged on 10/26/2020 to be followed in the surgical clinic in 2 weeks. Physical Exam Vital Signs: Temp Pulse Resp BP Pulse Ox 98.6 F 86 18 134/66 H 97 10/26/20 08:14 10/26/20 07:12 10/26/20 07:12 10/26/20 07:12 10/26/20 07:12 Intake & Output 10/25/20 10/26/20 10/27/20 06:59 06:59 06:59 Intake Total 4020 Output Total 2410 Balance 1610 Weight 79.6 kg Results Laboratory Results: WBC 10.5 10^3/uL (4.0-10.5) 10/26/20 07:54 RBC 3.60 10^6/uL (3.72-5.28) L 10/26/20 07:54 Hgb 11.0 g/dL (12.0-15.5) L D 10/26/20 07:54 Hct 31.9 % (36.0-47.0) L 10/26/20 07:54 MCV 89 fl (80-97) 10/26/20 07:54 MCH 30.6 pg (27.0-33.4) 10/26/20 07:54 MCHC 34.5 g/dL (32.0-36.0) 10/26/20 07:54 RDW 13.8 % (11.5-14.0) 10/26/20 07:54 Plt Count 167 10^3/uL (150-450) 10/26/20 07:54 Lymph % (Auto) 21.2 % (13-45) 10/26/20 07:54 [place] % (Auto) 6.3 % (3-13) 10/26/20 07:54 Eos % (Auto) 0.0 % (0-6) 10/26/20 07:54 Baso % (Auto) 0.4 % (0-2) 10/26/20 07:54 Absolute Neuts (auto) 7.6 10^3/uL (1.7-8.2) 10/26/20 07:54 Absolute Lymphs (auto) 2.2 10^3/uL (0.5-4.7) 10/26/20 07:54 Absolute Monos (auto) 0.7 10^3/uL (0.1-1.4) 10/26/20 07:54 Absolute Eos (auto) 0.0 10^3/uL (0.0-0.6) 10/26/20 07:54 Absolute Basos (auto) 0.0 10^3/uL (0.0-0.2) 10/26/20 07:54 Seg Neutrophils % 72.1 % (42-78) 10/26/20 07:54 Sodium 139.2 mmol/L (137-145) 10/26/20 07:54 Potassium 4.0 mmol/L (3.6-5.0) 10/26/20 07:54 Chloride 108 mmol/L (98-107) H 10/26/20 07:54 Carbon Dioxide 24 mmol/L (22-30) 10/26/20 07:54 Anion Gap 7 (5-19) 10/26/20 07:54 BUN 9 mg/dL (7-20) 10/26/20 07:54 Creatinine 0.75 mg/dL (0.52-1.25) 10/26/20 07:54 Est GFR ( Amer) > 60 (>60) 10/26/20 07:54 Est GFR (MDRD) Non-Af > 60 (>60) 10/26/20 07:54 Glucose 108 mg/dL (75-110) 10/26/20 07:54 Calcium 9.1 mg/dL (8.4-10.2) 10/26/20 07:54 Total Bilirubin 0.3 mg/dL (0.2-1.3) 10/26/20 07:54 Direct Bilirubin 0.1 mg/dL (0.0-0.4) 10/26/20 07:54 Neonat Total Bilirubin Not Reportable 10/26/20 07:54 Neonat Direct Bilirubin Not Reportable 10/26/20 07:54 Neonat Indirect Bili Not Reportable 10/26/20 07:54 AST 27 U/L (14-36) 10/26/20 07:54 ALT 28 U/L (<35) 10/26/20 07:54 Alkaline Phosphatase 102 U/L (38-126) 10/26/20 07:54 Total Protein 5.4 g/dL (6.3-8.2) L 10/26/20 07:54 Albumin 3.4 g/dL (3.5-5.0) L 10/26/20 07:54 Lipase 60.1 U/L (23-300) 10/25/20 08:42 Urine Color STRAW 10/25/20 09:39 Urine Appearance CLEAR 10/25/20 09:39 Urine pH 7.0 (5.0-9.0) 10/25/20 09:39 Ur Specific [place] 1.015 10/25/20 09:39 Urine Protein NEGATIVE mg/dL (NEGATIVE) 10/25/20 09:39 Urine Glucose (UA) NEGATIVE mg/dL (NEGATIVE) 10/25/20 09:39 Urine Ketones TRACE mg/dL (NEGATIVE) H 10/25/20 09:39 Urine Blood SMALL (NEGATIVE) H 10/25/20 09:39 Urine Nitrite NEGATIVE (NEGATIVE) 10/25/20 09:39 Urine Bilirubin NEGATIVE (NEGATIVE) 10/25/20 09:39 Urine Urobilinogen NEGATIVE mg/dL (<2.0) 10/25/20 09:39 Ur Leukocyte Esterase NEGATIVE (NEGATIVE) 10/25/20 09:39 Urine WBC (Auto) 0 /HPF 10/25/20 09:39 Urine RBC (Auto) 2 /HPF 10/25/20 09:39 U Hyaline Cast (Auto) 4 /LPF 10/25/20 09:39 Squamous Epi Cells Auto 1 /HPF 12/10/20 09:39 Urine Mucus (Auto) RARE /LPF 10/25/20 09:39 Urine Ascorbic Acid NEGATIVE (NEGATIVE) 10/25/20 09:39 Influenza A (RT-PCR) NEGATIVE (NEGATIVE) 10/25/20 11:45 Influenza B (RT-PCR) NEGATIVE (NEGATIVE) 10/25/20 11:45 RSV (RT-PCR) NEGATIVE (NEGATIVE) 10/25/20 11:45 SARS-CoV-2 Rap RNA(RT-PCR) NEGATIVE (NEGATIVE) 10/25/20 11:45 Impressions: Abdomen Ultrasound 10/25/20 09:02 IMPRESSION: Cholelithiasis. While there are no sonographic findings of acute cholecystitis, such a process cannot be ruled out given a positive sonographic Reyna sign. Adenomyomatosis. Common bile duct measuring at the upper limits of normal, unchanged. Hepatic steatosis. Plan Time Spent: Less than 30 Minutes
[2020-10-26 11:29] VITALS: BP 138/73
== END 2020-10-26 15:02 | disposition hospice, inpatient (51) ==
LOC: ER 08:23 → INTOOBSV 11:45 → EH 11:45 → 2N 17:28
DX: K80.00 Calculus of gallbladder with acute cholecystitis without obstruction (principal); D72.829 Elevated white blood cell count, unspecified; R11.2 Nausea with vomiting, unspecified; R10.11 Right upper quadrant pain; K21.9 Gastro-esophageal reflux disease without esophagitis; F17.200 Nicotine dependence, unspecified, uncomplicated; Z88.8 Allergy status to other drugs, medicaments and biological substances; Z88.0 Allergy status to penicillin; Z20.828 Contact with and (suspected) exposure to other viral communicable diseases
CPT/HCPCS: 47562; 99285; 96361; 96374; 96375; 36415 ×2; 83690; 85025 ×2; 0241U ×4; 80053 ×2; 81001; 88304 ×2; 76705; 90686; 99140; 00790; G0378 ×3; G0008; J2250; J3490 ×5; J0690 ×2; J1100; J1885 ×2; J2765; J2270; J2710; J1170; J2405; J7121; J7030; J2704; J0131; C9803; 790; 90471